=== PATIENT | male | born 1955 | race Caucasian/White ===

== ENCOUNTER 2018-03-15 06:07 | Emergency (ER) | payer OTHER ==
[~2018-03-15] VITALS: Ht 172.7 cm; Wt 86.0 kg
[2018-03-15 06:40] VITALS: BP 184/103
[2018-03-15] MEDS ORDERED: HYDROcodone/acetaminophen 10/325mg tab PO ONE (07:00)
[2018-03-15] MEDS ORDERED: IBUP-1984 PO (07:54)
[2018-03-15] MEDS ORDERED: HYDR-565 PO (07:54)
== END 2018-03-15 08:05 | disposition home or self-care (01) ==
LOC: ER 06:09
DX: S20.211A Contusion of right front wall of thorax, initial encounter (principal); S00.03XA Contusion of scalp, initial encounter; F17.200 Nicotine dependence, unspecified, uncomplicated; M54.89 Other dorsalgia; Z79.899 Other long term (current) drug therapy; Z60.2 Problems related to living alone; Y04.8XXA Assault by other bodily force, initial encounter; Y93.89 Activity, other specified; Y92.89 Other specified places as the place of occurrence of the external cause; Y99.8 Other external cause status
CPT/HCPCS: 70450; 71101; 99284; A6449